=== PATIENT | male | born 1950 | race Caucasian/White ===

== ENCOUNTER 2020-01-23 09:27 | Outpatient (CLI) | payer MEDICARE, BC | END 2020-01-23 23:59 | disposition home or self-care (01) | LOC: LAB 09:27 | PROVIDERS: ATTEND Specialist | DX: Z01.812 Encounter for preprocedural laboratory examination (principal); Z11.59 Encounter for screening for other viral diseases | CPT/HCPCS: U0003-CS ==

== ENCOUNTER 2020-01-26 05:14 | Inpatient (IN) | payer MEDICARE, BC ==
[2020-01-26] VITALS (7 sets, daily range): BP systolic 115–157; BP diastolic 60–94
[~2020-01-26] VITALS: Ht 177.8 cm; Wt 97.1 kg
[2020-01-26] MEDS ORDERED: MORPHINE SULFATE INJ 4 MG/ML DISP.SYRIN IM PRN (06:00)
[2020-01-26] MEDS ORDERED: MAGNESIUM HYDROXIDE 30 ML UDC PO PRN (06:00)
[2020-01-26] MEDS ORDERED: ONDANSETRON HCL/PF 4 MG/2 ML VIAL IV PRN (06:00)
[2020-01-26] MEDS ORDERED: CLONIDINE HCL 0.1 MG TABLET PO PRN (06:00)
[2020-01-26] MEDS ORDERED: MAG HYDROX/AL HYDROX/SIMETH 30 ML UDC PO PRN (06:00)
[2020-01-26] MEDS ORDERED: diphenhydrAMINE HCL 25 MG CAPSULE PO PRN (06:00)
--- NOTE | 2020-01-26 06:00 | NUR ---
MS/RN OPENING NOTES NEW ADMIT PATIENT ARRIVED TO UNIT AT 0545HRS, AMBULATORY. PATIENT WILL BE RECEIVING DAY SURGERY, RIGHT TOTAL KNEE ARTHROPLASTY. UPON ASSESSMENT PATIENTS SKINS IS INTACT WITH NO REDNESS NOTED. VITAL SIGNS ARE WITHIN NORMAL LIMITS. PATIENT IS ON ROOM AIR TOLERATING WELL. NO SIGNS OF SOB AND NO RESPIRATORY DISTRESS NOTED. BREATHING IS EVEN AND UNLABORED. PATIENT HAS IV ACCESS ON LEFT FOREARM # 20 G, INTACT AND FLUSHING WELL. NO SIGNS OF DISTRESS NOTED. PATIENT SIGNED ALL CONSENT FORMS AND VERBALIZED UNDERSTANDING. WILL CONTINUE TO MONITOR PATIENT.
[2020-01-26] MEDS ORDERED: FENTANYL PF 250MCG/5ML AMPUL ONE (06:08)
[2020-01-26] MEDS ORDERED: MIDAZOLAM HCL 2 MG/2ML VIAL ONE (06:08)
[2020-01-26] MEDS ORDERED: BUPIVACAINE 0.25% 75 MG/30 ML VIAL ONE (06:09)
[2020-01-26] MEDS ORDERED: FAMOTIDINE/PF INJ 20 MG/2 ML VIAL IV ONE (06:10)
[2020-01-26] MEDS ORDERED: ROCURONIUM BROMIDE 50 MG/5 ML ONE (06:10)
[2020-01-26] MEDS ORDERED: SEVOFLURANE 250 ML BOTTLE IH ONE (06:13)
[2020-01-26] MEDS ORDERED: BACITRACIN 50000 UNITS/VIAL ONE (06:14)
[2020-01-26] MEDS ORDERED: ANESTHESIA TRAY IN PYXIS 1 EA TRAY MC ONE (06:14)
--- NOTE | 2020-01-26 06:20 | NUR ---
MS/RN NOTES PATIENT WAS TAKEN DOWN FOR SURGERY. PATIENT WAS STABLE WITH NO SIGNS OF DISTRESS NOTED UPON TRANSFER.
--- NOTE | 2020-01-26 07:09 | NUR ---
rn notes patient remains in surgery at this time
[2020-01-26] MEDS ORDERED: TRANEXAMIC ACID 3,000 MG in SODIUM CHLORIDE IRRIG SOLUTION 70 ML IR ONE (07:30)
--- NOTE | 2020-01-26 08:36 | NUR ---
rn notes AISHWARYA given to Armida BENITEZ.
--- NOTE | 2020-01-26 09:30 | NUR ---
MS/RN Opening note Reported by Tanna/RN, patient wyatt from OR for s/p total knee arthroplasty. AO x 4, able to responds all stimuli, pt c/o pain on left knee 5/10 pain, given morphine as prn at this time. Respiratory even and unlabored in room air, no sob observed. Skin is warm to touch, keep clean/dry, intact IV site. In stable vital sign. Keep bed in locked with elevated HOB for secure airway and aspiration precaution. Call light within reach, will continue to monitor.
[2020-01-26] MEDS ORDERED: NIAC500T2 PO (11:01)
[2020-01-26] MEDS ORDERED: RED600CA2 PO (11:01)
[2020-01-26] MEDS ORDERED: CHOL100040 PO (11:01)
[2020-01-26] MEDS ORDERED: VITA100014 PO (11:01)
[2020-01-26] MEDS ORDERED: TEST200V3 IM (11:01)
[2020-01-26] MEDS ORDERED: CYAN-51 PO (11:01)
[2020-01-26] MEDS ORDERED: ALBU18HF2 INH (11:01)
[2020-01-26] MEDS ORDERED: CETI-110 PO (11:01)
[2020-01-26] MEDS ORDERED: UBID100C13 PO (11:01)
[2020-01-26 11:02] LABS: HEMOGLOBIN 16.2 g/dL (13.5-17.5)
[2020-01-26] MEDS ORDERED: ALBUTEROL SULFATE INH 18 GM HFA.AER.AD IH PRN (12:00)
[2020-01-26] MEDS ORDERED: MORPHINE SULFATE INJ 4 MG/ML DISP.SYRIN IV PRN (12:00)
[2020-01-26] MEDS ORDERED: cetrizine 10 MG TABLET PO PRN (12:00)
[2020-01-26] MEDS ORDERED: ZOLPIDEM TARTRATE 5 MG TABLET PO PRN ×2 (12:00→12:30)
[2020-01-26] MEDS ORDERED: Z GUARD REMEDY 2 OZ OINT TP PRN (12:00)
[2020-01-26] MEDS ORDERED: EZET10TA16 PO (12:19)
[2020-01-26] MEDS ORDERED: TADA5TAB2 PO (12:19)
[2020-01-26] MEDS ORDERED: SENNOSIDES 8.6 MG TABLET PO PRN (12:30)
[2020-01-26] MEDS ORDERED: ACETAMINOPHEN 325 MG TABLET PO PRN (12:30)
[2020-01-26] MEDS ORDERED: BISACODYL SUPP (10 MG) 10 MG/SUPP.RECT SUPP.RECT RC PRN (12:30)
[2020-01-26] MEDS: IV D5/0.45 NACL 1,000 ML IV PRN ×2 (12:37→21:32)
[2020-01-26] MEDS: HYDROMORPHONE 1 MG/1 ML DISP.SYRIN SQ PRN ×3 (12:37→19:54)
[2020-01-26] MEDS: ANCEF 1 GM/50 ML D5W IV SCH ×4 (14:33→22:05)
[2020-01-26] MEDS: DOCUSATE SODIUM 100 MG CAPSULE PO SCH (17:12)
[2020-01-26] MEDS: MENTHOL/CETYLPYRD (CEPACOL) 1 LOZ LOZENGE PO PRN ×2 (17:13→19:42)
--- NOTE | 2020-01-26 18:00 | NUR ---
MS/RN Closing note Patient in bed, s/p total knee arthroplasty, no c/o right knee pain or discomfort at this time, ice bag applied on affected site. Respiratory even and unlabored in room air, skin is warm to touch, intact IV site running D5 1/2 NS at 125 ml/hr. Keep bed in locked with elevated HOB for ensure airway and aspiration precaution. Call light within reach, will endorse mini shifter.
[2020-01-26] MEDS: NIACIN EXT TAB (500MG) 500 MG TABLET.SA PO SCH (18:54)
--- NOTE | 2020-01-26 19:59 | NUR ---
MS/RN OPENING NOTES PATIENT IN BED, AWAKE, HOB ELEVATED, ALERT X4, ABLE TO VERBALIZE NEEDS,RESPIRATION EVEN AND UNLABORED, ON PAIN OF 7/10 TO 8/10, ON ICE PACK ON RIGHT KNEE WITH IMMOBILIZER ON, BED LOCKED CALL LIGHTS WITHIN REACH, IV SITE ON LFA GAUGE 20 PATENT, IV FLUID RUNNING, PATIENT DISCUSSED PLAN OF CARE, ON MEDICATION TO PREVENT URINE RETENTION AND NEEDED PAIN MEDICATION FOR MGMT, ALSO TO HELP RELAX, SHERRI GOMEZ DR LAST SAW PATIENT AND GIVEN NEW ORDER, TO MONITOR.RECEIVED ENDORSEMENT FROM AM RN FOR AISHWARYA.
[2020-01-26] MEDS: FAMOTIDINE (20 MG) 20 MG TABLET PO SCH (20:58)
[2020-01-26] MEDS: TAMSULOSIN 0.4 MG CAP.SR.24H PO SCH (21:11)
[2020-01-26] MEDS: LORAZEPAM 1 MG TABLET PO SCH (21:11)
--- NOTE | 2020-01-26 21:16 | NUR ---
MS/RN NOTES PATIENT WAS GIVEN SCHEDULED ATIVAN PO 0.5 MG, AND PROVIDED INFORMATION ON PROS AND BENEFIR, FLOMAX DISCUSSED WELL TO PREVENT URINARY RETENTION AND CEPHACOL FOR SORE THROAT. PATIENT ABLE TO EXERCISE THE PRESCRIBED REGIMEN AND ALSO WATCHES TV FOR RELAXATION.
--- NOTE | 2020-01-26 21:39 | NUR ---
MS/RN NOTES PATIENT IV FLUIDS REPLACED,
--- NOTE | 2020-01-26 22:38 | NUR ---
OXYGEN IN ROOM AIR CHECKED AT 98%
[2020-01-27] MEDS: HYDROMORPHONE 1 MG/1 ML DISP.SYRIN SQ PRN (00:13)
--- NOTE | 2020-01-27 00:19 | NUR ---
MS/RN NOTES PATIENT ABLE TO ASSIST AND WALK WITH WALKER WITH IMMOBILIZER PLACED TO THE BATHROOM, SCD INPLACED AFTER, AND RODRÍGUEZ BAG DRAINING URINE, USE OF INCENTIVE SPIROMETER, PAIN OF 8/10 REPORTED AFTER AND NEEDED DILAUDID 1 MG IVP GIVEN AFTER CHECKING TEMPERATURE, SBP AT 120 AND OXYGENATION IN ROOM AIR AT 97%.
--- NOTE | 2020-01-27 06:11 | NUR ---
314-1 MS.RN NOTES PATIENT IN BEDM ADBLE TO SLEEP DURING THE NIGHT, PAIN MANAGEMENT PROVIDED, RESPIRATIONS EVEN AND UNLABORED, ALERT X3, MOTIVATED TO SELF CARE, ASSISTED FOR SAFETY FOR PATIENT WITH RIGHT TOTAL KNEE SURGERY WITH IMMOBILIZER, AND SCD PLACED. WILL ENDORSE TO AM RN FOR AISHWARAY. BED LOCEKD, CALL LIGHTS WITHIN REACH. WILL MONITOR.
--- NOTE | 2020-01-27 06:45 | NUR ---
mrsa swab collected on both nares.patient tolerated well.
[2020-01-27 07:59] LABS: BASOPHILS % (AUTO) 0.2 % (0.0-2.0); EOSINOPHILS % (AUTO) 0.3 % (0.0-6.0); HEMATOCRIT 48 % (39-51); HEMOGLOBIN 15.7 g/dL (13.5-17.5); LYMPHOCYTES # (AUTO) 0.6 /CMM (0.8-4.8); LYMPHOCYTES % (AUTO) 5.5 % (20.0-44.0); MEAN CORPUSCULAR HGB CONC 33 g/dl (31.0-36.0); MEAN CORPUSCULAR VOLUME 100 fL (80-96); MONOCYTES # (AUTO) 1.4 /CMM (0.1-1.30); MONOCYTES % (AUTO) 13.3 % (2.0-12.0); NEUTROPHILS # (AUTO) 8.7 /CMM (1.8-8.9); NEUTROPHILS % (AUTO) 80.7 % (43.0-81.0); PLATELET COUNT (AUTO) 184 /CMM (150-450); RED BLOOD CELL COUNT(AUTO) 4.76 MIL/uL (4.5-6.0); WHITE BLOOD COUNT (AUTO) 10.8 K/uL (4.3-11.0)
[2020-01-27 08:00] VITALS: BP 144/83
[2020-01-27] MEDS: CYANOCOBALAMIN 500 MCG TABLET PO SCH (08:24)
[2020-01-27] MEDS: DOCUSATE SODIUM 100 MG CAPSULE PO SCH ×2 (08:24→17:26)
[2020-01-27] MEDS: FAMOTIDINE (20 MG) 20 MG TABLET PO SCH ×2 (08:24→21:01)
[2020-01-27] MEDS: CHOLECALCIFEROL 1,000 UNIT TABLET (VIT D3) PO SCH (08:24)
[2020-01-27] MEDS: ASPIRIN 325 MG TABLET PO SCH (08:24)
[2020-01-27 08:29] LABS: CALCIUM, SERUM 8.2 mg/dL (8.5-10.1); CREATININE 0.9 mg/dL (0.6-1.3); MAGNESIUM 2.2 mg/dL (1.8-2.4); PHOSPHORUS 2.6 mg/dL (2.5-4.9); POTASSIUM 3.5 mmol/L (3.5-5.1)
[2020-01-27] MEDS: oxyCODONE IR immediate release 5 MG PO PRN ×4 (08:29→21:01)
[2020-01-27] MEDS ORDERED: oxyCODONE IR immediate release 5 MG PO PRN (08:30)
--- NOTE | 2020-01-27 08:30 | NUR ---
MS/RN Opening note Received patient and report from ELI Jung. Pt is AO x 4, able to responds all stimuli, denies pain at this time. S/P rt total knee arthroplasty. Surgical dressing clean and dry. Respiratory even and unlabored in room air, no sob observed. Skin is warm to touch, keep clean/dry, intact IV site. With cassidy catheter intact draining clear yellow urine and to be removed today. Pt wants it removed after seeing P.T. With stable vital sign. Keep bed in locked with elevated HOB for secure airway and aspiration precaution. Call light within reach, will continue to monitor.
--- NOTE | 2020-01-27 08:30 | NUR ---
Changed patient assignment, given report Minerva/ELI.
[2020-01-27] MEDS: SENNOSIDES 8.6 MG TABLET PO SCH ×2 (08:35→17:26)
[2020-01-27] MEDS: VITAMIN A 10,000 UNIT CAPSULE PO SCH (09:00)
--- NOTE | 2020-01-27 09:00 | NUR ---
Vitamin A pill is not available with our pharmacy and pt brought his home meds -sent to the pharmacy for keeping but all the home meds are not labeled. Pt stated that its ok to skip for 1-2 days saying he can resume taking it when he goes home. Pt was seen by Laura,(Whitney LAWSON) and stated that pt can go home today or tomorrow and it is up to the pt. Laura stated that the pt is a regular pt of Dr Suarez and already has a doctor's appt with Dr Suarez.
--- NOTE | 2020-01-27 12:52 | NUR ---
After pt ambulated with P.T. along the hallway using FWW, removed cassidy catheter with 2,250 ml clear yellow urine output.Pt tolerated well. Placed urinal and call light at the bedside.
[2020-01-27 16:00] VITALS: BP 148/103
[2020-01-27] MEDS: NIACIN EXT TAB (500MG) 500 MG TABLET.SA PO SCH (17:26)
--- NOTE | 2020-01-27 17:37 | NUR ---
ADMINISTERED OXYIR 10 MG PO GIVEN FOR PAIN MGT.
--- NOTE | 2020-01-27 18:15 | NUR ---
PT AMBULATING ALONG THE HALLWAY USING FWW WITH SLOW STEADY GAIT. PT TOLERATED WELL.
--- NOTE | 2020-01-27 19:24 | NUR ---
MS RN RECEIVE PT IN BED A/O X 3, S/P R TKA DRESSING INTACT, IN STABLE, NO S/S OF DISTRESS, SAFETY MEASURES AT ALL TIMES. WILL CONT TO MONITOR
[2020-01-27 20:00] VITALS: BP 139/93
[2020-01-27] MEDS: TAMSULOSIN 0.4 MG CAP.SR.24H PO SCH (21:01)
[2020-01-27] MEDS: LORAZEPAM 1 MG TABLET PO SCH (21:01)
--- NOTE | 2020-01-28 06:03 | NUR ---
MS RN NO SIGNIFICANT CHANGES, NO COMPLAINTS, S/P TKA DRESSING INTACT, CLEAN, DRY NO S/S OF BLEEDING,NOT IN DISTRESS, NO SOB, SLEPT WELL, KEPT CLEAN, DRY AND COMFORTABLE AT ALL TIMES. ALL NEEDS ATTENDED AND ANTICIPATED, MONITORED FOR PAIN. PT SLEPT WELL 9 HOURS, SAFETY MEASURES AT ALL TIMES. WILL ENDORSE TO NEXT SHIFT
--- NOTE | 2020-01-28 07:51 | NUR ---
rn notes patient received on room air, no sob noted, a/o x4 and is denying pain at this time. States that he is more comfortable and was actually walking around with a 2 wheel walker around the hallway. Good balance noted. Bed at the lowest setting, call light within reach, side rails up x2.
[2020-01-28 08:00] VITALS: BP 138/90
[2020-01-28] MEDS ORDERED: POLYETHYLENE GLYCOL 3350 17 GM POWD.PACK PO ONE (08:30)
[2020-01-28] MEDS: CYANOCOBALAMIN 500 MCG TABLET PO SCH (08:33)
[2020-01-28] MEDS: SENNOSIDES 8.6 MG TABLET PO SCH (08:33)
[2020-01-28] MEDS: CHOLECALCIFEROL 1,000 UNIT TABLET (VIT D3) PO SCH (08:33)
[2020-01-28] MEDS: ASPIRIN 325 MG TABLET PO SCH (08:33)
[2020-01-28] MEDS: DOCUSATE SODIUM 100 MG CAPSULE PO SCH (08:33)
[2020-01-28] MEDS: FAMOTIDINE (20 MG) 20 MG TABLET PO SCH (08:33)
[2020-01-28] MEDS: VITAMIN A 10,000 UNIT CAPSULE PO SCH (08:34)
--- NOTE | 2020-01-28 11:09 | NUR ---
rn notes patient discharged at this time. no sob noted, patient denies pain at this time. With all his belongings, nothing missing per patient. R dressing has no bleeding and is clean. Home health set up and patient will be waiting for them at home. Padmini has all paper work and prescription. Knows who to follow up and when. Patient stated that [facility] felt like a 5 star hotel, and I agreed with him.
== END 2020-01-28 11:15 | disposition home health service (06) | DRG 470 ==
LOC: DS 05:14 → MED 05:23
PROVIDERS: ADMIT Nurse Practitioner Acute Care; ATTEND Nurse Practitioner Acute Care
PROC: 0SRC0J9 Replacement of Right Knee Joint with Synthetic Substitute, Cemented, Open Approach (ICD-10-PCS; principal; 2020-01-26)
DX: M12.561 Traumatic arthropathy, right knee (principal); D68.59 Other primary thrombophilia; H40.9 Unspecified glaucoma; Z74.09 Other reduced mobility; E66.9 Obesity, unspecified; E78.5 Hyperlipidemia, unspecified; I10 Essential (primary) hypertension; Z87.891 Personal history of nicotine dependence; Z85.828 Personal history of other malignant neoplasm of skin; Z83.3 Family history of diabetes mellitus; Z82.49 Family history of ischemic heart disease and other diseases of the circulatory system
CPT/HCPCS: 36415; 80048-TC; 80061-TC; 82962-TC; 83735-TC; 84100-TC; 85025-TC; 85027-TC; 87081-TC; 88305-TC; 88311-TC; 97110-TC; 97116-TC; 97530-TC; 97760-TC; A4217; C1713; C1776; G0378; J0690; J1170; J2250; J2270; J2405; J2704; J2710; J2765; J3010; J3490; J7060; L1830